=== PATIENT | female | born 2005 | race Caucasian/White ===

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

== ENCOUNTER 2023-08-25 01:44 | Inpatient (IN) ==
[2023-08-25] MEDS ORDERED: LACTATED RINGER'S 1,000 ML IV PRN (04:30)
[2023-08-25] MEDS ORDERED: LIDOCAINE 1% LOCAL 20 ML VIAL INFIL PRN (04:30)
[2023-08-25] MEDS ORDERED: OXYTOCIN 30 UNITS/NSS 30 UNITS/500 ML BAG IV PRN ×2 (04:30→07:51)
--- NOTE | 2023-08-25 05:11 | History & Physical Report ---
Date of Service August 25, 2023 Assessment & Plan (1) Teen : Plan: Admit and anticipate normal delivery Admission and Anticipated Discharge Date Admission Date: August 25, 2023 History of Present Illness Chief Complaint: onset of labor at term Primary Care Provider: RONNI PCP 17 F P1001 at 40 weeks presents in labor. GBS is negative. Allergies Allergy/AdvReac Type Severity Reaction Status Date / Time No Known Allergies Allergy Unknown Verified 08/25/23 02:02 Home Medications Medication Instructions Recorded Confirmed Type prenat.vits,nya,yrl-pucr-depwv 1 tab PO DAILY 05/31/21 08/25/23 History ferrous sulfate 325 mg (65 mg 325 mg PO QAM #60 tabs 06/01/21 08/25/23 Rx iron) tablet,delayed release sertraline 50 mg tablet (Zoloft) 50 mg PO DAILY 08/25/23 08/25/23 History Patient History Medical History Anxiety Depression ADHD No medications Social History Smoking Status: Current every day smoker Tobacco Type: E-cigarettes / Vaping Cigarettes Per Day: 2; Do You Dip or Chew Tobacco: No; Hx Alcohol Use: No Hx Substance Use: No Preferred Language: Arabic Communication Ability: Effective Financial Services Agent Required: No Beliefs That Will Affect Care: None marital status: Single Current Living Situation: Family Current Living Situation Comment: Lives with mom but stays with her boyfrined. 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 Review of Systems All systems reviewed & are unremarkable except as noted in HPI & below Physical Exam Constitutional: WD/WN, vitals as above Eyes: PERRL, conjunctivae normal, anicteric sclerae Respiratory: normal respiratory effort, lungs clear to auscultation Cardiovascular: RRR, no murmur, no edema Gastrointestinal (Abdomen): Inspection/Auscultation: abdomen normal to inspection Musculoskeletal: Extremities: extremities normal to inspection Skin: no rashes, warm and dry Neurologic: patellar DTR's 2+ bilat, sensation intact Psychiatric: A+Ox3, euthymic affect Genitourinary: Manual OB Exam: + cervical dilation 5 cm and 6 cm, + cervical effacement 100% and + station -2 OB Exam Monitor Tracing: + external FHT monitor used, + external uterine monitor used, + category I and + normal FHT variability Results & Data Vital Signs (Past 12 Hours) Vital Signs Temp Pulse Resp BP 08/25/23 02:06 36.5 C 18 08/25/23 01:58 90 138/81 Laboratory Results Laboratory Results - last 24 hr 08/25/23 08/25/23 02:23 04:42 WBC Pending RBC Pending Hgb Pending Hct Pending MCV Pending MCH Pending MCHC Pending Plt Count Pending Amniotic Protein Pending Blood Type Pending Antibody Screen Pending Code Status & VTE Plan VTE Prophylaxis Plan VTE Prophylaxis will be ordered: No Monitoring External Monitor Cat 1
[2023-08-25 05:26] LABS: Hematocrit (blood only) 35.5 % (37.0-47.0); Hemoglobin 12.1 g/dl (12.0-16.0); Mean Corpuscular Hemoglobin 28.9 pg (25.0-34.0); Mean Corpuscular Hgb Conc 34.1 g/dL (32.0-36.0); Mean Corpuscular Volume 84.9 fL (80.0-100.0); Mean Platelet Volume 10.8 fL (9.4-12.4); Platelet Count 193 K/uL (130-400); RDW Coefficient of Variation 14.9 % (11.5-14.5); RDW Standard Deviation 45.5 fL (36.4-46.3); Red Blood Count 4.18 M/uL (4.20-5.40); White Blood Count 11.66 K/ul (4.8-10.8)
--- NOTE | 2023-08-25 07:05 | Labor Progress Brief Note ---
Date of Service August 25, 2023 Assessment & Plan Admission and Anticipated Discharge Date Admission Date: August 25, 2023 Physical Exam Genitourinary: Manual OB Exam: + cervical dilation 7 cm and 8 cm, + cervical effacement 100% and + station -1 OB Exam Monitor Tracing: + external FHT monitor used, + external uterine monitor used, + category I and + normal FHT variability AROM with Amni-hook clear fluid Results & Data Vital Signs (Past 12 Hours) Vital Signs Temp Pulse Resp BP 08/25/23 06:54 85 139/84 08/25/23 05:16 88 153/95 H 08/25/23 05:15 36.8 C 82 18 166/107 H 08/25/23 02:06 36.5 C 18 08/25/23 01:58 90 138/81
[2023-08-25] MEDS ORDERED: BENZOCAINE 20% SPRY 85 APPLN/85 GM CAN EXT PRN (07:51)
[2023-08-25] MEDS ORDERED: HYDROCORTISONE ACETATE 25 MG SUPP PR PRN (07:51)
[2023-08-25] MEDS ORDERED: ACETAMINOPHEN 325 MG TAB PO PRN (07:51)
[2023-08-25] MEDS ORDERED: bisacodyL 10 MG SUPP PR PRN (07:51)
[2023-08-25] MEDS ORDERED: DIPHTHER/TETAN/PERTUS Vaccine (Tdap, Adol/Adult) 0.5mL IM ONE (07:51)
--- NOTE | 2023-08-25 07:54 | Delivery Summary ---
Vaginal Delivery Summary Date of Service August 25, 2023 Vaginal Delivery Summary live female RHONDA over intact perineum with nuchal cord x2 reduced at delivery of head with delayed cord clamping and Apgars 8/9 weight pending. Cord blood obtained followed by spontaneous delivery of intact placenta. No tears. EBL 250 ml. Final sponge and instrument count are correct. Mom and baby stable.
[2023-08-25] MEDS: DOCUSATE SODIUM 100 MG CAP PO SCH ×2 (08:17→19:33)
[2023-08-25] MEDS: PRENATAL VITAMIN 1 TAB PO SCH (08:17)
[2023-08-25] MEDS: FERROUS SULFATE 325 MG TAB PO SCH (08:17)
[2023-08-25] MEDS: IBUPROFEN 600 MG TAB PO PRN ×3 (08:18→19:33)
[2023-08-25] MEDS ORDERED: NON-FORMULARY MEDICATION (Prenat.Vits,Cal,Min-Iron-Folic Tablet) PO SCH (09:00)
[2023-08-25] MEDS ORDERED: FERROUS SULFATE 325 MG TAB PO SCH (09:00)
[2023-08-25] MEDS: SERTRALINE HCL 50 MG TABLET PO SCH (09:28)
[2023-08-26 06:33] LABS: Hematocrit (blood only) 31.4 % (37.0-47.0); Hemoglobin 10.4 g/dl (12.0-16.0); Mean Corpuscular Hemoglobin 28.3 pg (25.0-34.0); Mean Corpuscular Hgb Conc 33.1 g/dL (32.0-36.0); Mean Corpuscular Volume 85.6 fL (80.0-100.0); Mean Platelet Volume 10.1 fL (9.4-12.4); Platelet Count 207 K/uL (130-400); RDW Coefficient of Variation 15.2 % (11.5-14.5); RDW Standard Deviation 46.7 fL (36.4-46.3); Red Blood Count 3.67 M/uL (4.20-5.40); White Blood Count 9.78 K/ul (4.8-10.8)
--- NOTE | 2023-08-26 08:09 | Obstetrical Progress Note ---
Date of Service August 26, 2023 Assessment & Plan Admission and Anticipated Discharge Date Admission Date: August 25, 2023 Subjective Patient is seen and examined. She feels well, no complaints. Ambulating without dizziness Voiding without difficulty Tolerating regular diet with out N&V Bleeding is minimal No fever/ chills/ CP/ SOB/ N&V/ Leg pain Breast feeding without problems Vital Signs Temp Pulse Pulse Resp BP BP Pulse Ox 08/26/23 07:15 36.7 C 86 16 129/80 08/26/23 04:43 36.3 C L 84 16 123/76 96 08/25/23 23:41 36.5 C 84 16 143/86 H 98 08/25/23 19:25 36.6 C 95 H 16 120/79 96 08/25/23 15:45 36.6 C 82 18 133/70 08/25/23 11:00 36.4 C L 88 18 114/67 08/25/23 10:15 20 08/25/23 09:32 20 08/25/23 09:30 109 H 120/64 08/25/23 09:17 100 H 134/63 08/25/23 09:02 20 08/25/23 09:02 88 134/84 08/25/23 08:47 81 128/74 08/25/23 08:32 20 08/25/23 08:32 85 151/88 H 08/25/23 08:17 20 08/25/23 08:17 74 137/80 08/25/23 08:13 81 149/72 H O2 Del Method 08/26/23 07:15 Room Air 08/26/23 04:43 Room Air 08/25/23 23:41 Room Air 08/25/23 19:25 Room Air 08/25/23 15:45 Room Air 08/25/23 11:00 Room Air 08/25/23 10:15 08/25/23 09:32 08/25/23 09:30 08/25/23 09:17 08/25/23 09:02 08/25/23 09:02 08/25/23 08:47 08/25/23 08:32 08/25/23 08:32 08/25/23 08:17 08/25/23 08:17 08/25/23 08:13 Lab Results 08/25/23 08/26/23 Range/Units 04:42 06:08 WBC 11.66 H 9.78 (4.8-10.8) K/ul RBC 4.18 L 3.67 L (4.20-5.40) M/uL Hgb 12.1 10.4 L (12.0-16.0) g/dl Hct 35.5 L 31.4 L (37.0-47.0) % MCV 84.9 85.6 (80.0-100.0) fL MCH 28.9 28.3 (25.0-34.0) pg MCHC 34.1 33.1 (32.0-36.0) g/dL RDW Std Deviation 45.5 46.7 H (36.4-46.3) fL RDW Coeff of Mazin 14.9 H 15.2 H (11.5-14.5) % Plt Count 193 207 (130-400) K/uL MPV 10.8 10.1 (9.4-12.4) fL Blood Type O Positive Antibody Screen NEGATIVE PE: General: Alert, orientedx3, NAD Abd: soft, NT, fundus firm, below Umbilicus Perineum intact, Lochia rubra minimal Ext; NT, no edema AP: 17 yo s/p , ppd# 1 VSS Afebrile doing well Continue routine care Desires d/c today All questions were answered D/C home , F/U in office Results & Data Vital Signs (Past 12 Hours) Vital Signs Temp Pulse Resp BP Pulse Ox O2 Del Method 08/26/23 07:15 36.7 C 86 16 129/80 Room Air 08/26/23 04:43 36.3 C L 84 16 123/76 96 Room Air 08/25/23 23:41 36.5 C 84 16 143/86 H 98 Room Air
[2023-08-26] MEDS: SERTRALINE HCL 50 MG TABLET PO SCH (08:43)
[2023-08-26] MEDS: DOCUSATE SODIUM 100 MG CAP PO SCH (08:43)
[2023-08-26] MEDS: FERROUS SULFATE 325 MG TAB PO SCH (08:43)
[2023-08-26] MEDS: PRENATAL VITAMIN 1 TAB PO SCH (08:43)
[2023-08-26] MEDS: IBUPROFEN 600 MG TAB PO PRN (15:24)
[2023-08-26] MEDS ORDERED: bisacodyL 5 MG TABEC PO SCH (20:00)
== END 2023-08-26 17:45 | disposition home health service (06) | DRG 807 ==
LOC: OPB 01:44 → 4S1 01:48 → 4E2 10:30